=== PATIENT | female | born 1980 | race African-American/Black ===

== ENCOUNTER 2017-01-03 19:24 | Emergency (ER) | payer OTHER ==
[2017-01-03] MEDS ORDERED: levETIRAcetam 500 MG/5 ML INJECTION VIAL IVPB ONE ×2 (19:38→19:39)
[2017-01-03 20:00] VITALS: BP 138/96; PULSE 72; TEMP 98.3; BMI 120.3
[2017-01-03 20:13] LABS: BASOPHIL 0.5 % (0-2.0); EOSINOPHIL 1.5 % (0-4.5); MCHC 34.5 g/dl (32.0-36.0); MEAN CELL VOLUME 95.7 fl (80-96); MEAN PLT VOLUME 8.1 fl (7.5-11.1); NEUTROPHILS 63.1 % (42.8-82.8); PLATELET COUNT 244 K/MM3 (134-434); RDW 13.7 % (11.6-15.6); WHITE BLOOD COUNT 9.1 K/mm3 (4.0-10.0)
[2017-01-03 20:42] LABS: ALBUMIN 3.4 g/dl (3.4-5.0); ANION GAP 8 (8-16); BILIRUBIN,TOTAL 0.3 mg/dL (0.2-1.0); CALCIUM 8.5 mg/dL (8.5-10.1); CO2 30 mmol/L (21-32); CREATININE 0.8 mg/dL (0.55-1.02); GLUCOSE,RANDOM 96 mg/dL (74-106); SGOT/AST 15 U/L (15-37); SGPT/ALT 22 U/L (12-78)
[2017-01-03 20:43] LABS: ALK PHOS 68 U/L (45-117)
[2017-01-03] MEDS ORDERED: POTASSIUM CHLORIDE TABS 20 MEQ TABLET.ER (FP) PO ONE ×3 (21:14→21:33)
--- NOTE | 2017-01-04 02:17 | PDOC ---
History of Present Illness - General History Source: Patient Exam Limitations: No Limitations - History of Present Illness Initial Comments: 01/04/17 02:17 The patient is a 36 year old female with a significant past medical history of seizure disorder (Keppra 500 BID), asthma, diabetes who presents to the ED s/p seizure. Patient was at her doctor's office at [facility] to renew her seizure medication as she was witnessed by security officers to have a seizure. Patient was found to be seizing for 5-10 minutes. As per EMS, patient was found to have BGM was 97 and slightly postictal. No prior history of trauma. LMP - couple weeks ago PSH: Left knee surgery, cholecystectomy <Toshia Joyce - Last Filed: 01/04/17 02:17> <Joanne Peck - Last Filed: 01/05/17 02:16> - General Chief Complaint: Seizure Stated Complaint: SEIZURE Time Seen by Provider: 01/03/17 19:28 Past History <Toshia Joyce - Last Filed: 01/04/17 02:17> - Past Medical History Asthma: Yes Cancer: No Diabetes: Yes (?) GI Disorders: Yes (gallstones; she had laparoscopic surgery to crush them, but she still has h) Seizures: No - Immunization History Immunization Up to Date: No - Psycho/Social/Smoking Cessation Hx Anxiety: No Suicidal Ideation: No Smoking Status: Yes Smoking History: Never smoked Years of Tobacco Use: 16 Have you smoked in the past 12 months: Yes Number of Cigarettes Smoked Daily: 10 'Breaking Loose' booklet given: 05/16/12 Hx Alcohol Use: No Drug/Substance Use Hx: No Substance Use Type: Marijuana Hx Substance Use Treatment: No <Joanne Peck - Last Filed: 01/05/17 02:16> - Past Medical History Allergies/Adverse Reactions: Allergies Allergy/AdvReac Type Severity Reaction Status Date / Time ampicillin [Ampicillin] Allergy Unknown Verified 05/08/16 03:37 Home Medications: Ambulatory Orders Morphine Sulfate 30 mg PO BID PRN 07/24/14 Oxycodone HCl/Acetaminophen [Oxycodone-Acetaminophen 10-325] 1 each PO BID PRN 07/24/14 Hctz 25Mg/Triamterene [Dyazide 25/37.5MG -] 1 cap PO BID 01/03/17 Levetiracetam [Keppra -] 500 mg PO BID 01/03/17 Review of Systems - Review of Systems Comments:: 01/04/17 02:18 CONSTITUTIONAL: Absent: fever, chills, diaphoresis, generalized weakness, malaise, loss of appetite HEENT: Absent: rhinorrhea, nasal congestion, throat pain, throat swelling, difficulty swallowing, mouth swelling, ear pain, eye pain, visual Changes CARDIOVASCULAR: Absent: chest pain, syncope, palpitations, irregular heart rate, lightheadedness , peripheral edema RESPIRATORY: Absent: cough, shortness of breath, dyspnea with exertion, orthopnea, wheezing, stridor, hemoptysis GASTROINTESTINAL: Absent: abdominal pain, abdominal distension, nausea, vomiting, diarrhea, constipation, melena, hematochezia GENITOURINARY: Absent: dysuria, frequency, urgency, hesitancy, hematuria, flank pain, genital pain MUSCULOSKELETAL: Absent: myalgia, arthralgia, joint swelling SKIN: Absent: rash, itching, pallor HEMATOLOGIC/IMMUNOLOGIC: Absent: easy bleeding, easy bruising, lymphadenopathy, frequent infections ENDOCRINE: Absent: unexplained weight gain, unexplained weight loss, heat intolerance, cold intolerance NEUROLOGIC: Absent: headache, focal weakness or paresthesias, dizziness, unsteady gait, seizure, mental status changes, bladder or bowel incontinence PSYCHIATRIC: Absent: anxiety, depression, suicidal or homicidal ideation, hallucinations. <Toshia Joyce - Last Filed: 01/04/17 02:17> *Physical Exam - Vital Signs Last Vital Signs Temp Pulse Resp BP Pulse Ox 98.3 F 72 16 138/96 99 01/03/17 19:25 01/03/17 19:25 01/03/17 19:25 01/03/17 19:25 01/03/17 19:25 - Physical Exam Comments: 01/04/17 02:18 GENERAL: Well developed, well nourished. A&OX3. No acute distress. HEENT: Normocephalic.. PERRLA, EOMI. No conjunctival pallor. Sclera are non-icteric. Moist mucous membranes. Oropharynx is clear. NECK: Supple. Full ROM. No JVD. Carotid pulses 2+ and symmetric, without bruits. No thyromegaly. No lymphadenopathy. CARDIOVASCULAR: Regular rate and rhythm. No murmurs, rubs, or gallops. Distal pulses are 2+ and symmetric. PULMONARY: No evidence of respiratory distress. Lungs clear to auscultation bilaterally. No wheezing, rales or rhonchi. ABDOMINAL: +Morbidly obese. Soft. Non-tender. Non-distended. No rebound or guarding. No organomegaly. Normoactive bowel sounds. MUSCULOSKELETAL Normal range of motion at all joints. No bony deformities or tenderness. No CVA tenderness. EXTREMITIES: No cyanosis. No clubbing. No edema. No calf tenderness. SKIN: +4 cm abrasion on left forehead. Warm and dry. Normal capillary refill. No rashes. No jaundice. NEUROLOGICAL: Alert, awake, appropriate. Cranial nerves 2-12 intact. No deficits to light touch and temperature in face, upper extremities and lower extremities. No motor deficits in the in face, upper extremities and lower extremities. Normoreflexic in the upper and lower extremities. Normal speech. Toes are down-going bilaterally. Gait is normal without ataxia. PSYCHIATRIC: Cooperative. Good eye contact. Appropriate mood and affect. <Toshia Joyce - Last Filed: 01/04/17 02:17> - Vital Signs Last Vital Signs Temp Pulse Resp BP Pulse Ox 98.3 F 72 16 138/96 99 01/03/17 19:25 01/03/17 19:25 01/03/17 19:25 01/03/17 19:25 01/03/17 19:25 <Joanne Peck - Last Filed: 01/05/17 02:16> ED Treatment Course - LABORATORY CBC & Chemistry Diagram: 01/03/17 20:00 01/03/17 20:00 - ADDITIONAL ORDERS Additional order review: Laboratory Results 01/03/17 01/03/17 01/03/17 20:00 20:00 20:00 INR Sodium 140 Potassium 3.1 L D Chloride 102 Carbon Dioxide 30 Anion Gap 8 BUN 10 D Creatinine 0.8 Creat Clearance w eGFR > 60 Random Glucose 96 Calcium 8.5 Total Bilirubin 0.3 D AST 15 ALT 22 Alkaline Phosphatase 68 Total Protein 7.0 Albumin 3.4 Serum , Qual Negative Blood Type B POSITIVE Antibody Screen Negative 01/03/17 20:00 INR 1.00 Sodium Potassium Chloride Carbon Dioxide Anion Gap BUN Creatinine Creat Clearance w eGFR Random Glucose Calcium Total Bilirubin AST ALT Alkaline Phosphatase Total Protein Albumin Serum , Qual Blood Type Antibody Screen 01/03/17 20:00 RBC 3.89 MCV 95.7 MCHC 34.5 RDW 13.7 MPV 8.1 Neutrophils % 63.1 Lymphocytes % 29.3 D Monocytes % 5.6 Eosinophils % 1.5 Basophils % 0.5 - Medications Given in the ED: ED Medications Discontinued Medications Generic Name Dose Route Start Last Admin Trade Name Freq PRN Reason Stop Dose Admin Levetiracetam 1,000 mg 01/03/17 19:38 01/03/17 19:57 Keppra Injection - IVPB 01/03/17 19:39 1,000 mg ONCE ONE Administration Potassium Chloride 40 meq 01/03/17 21:14 01/03/17 21:32 K-Dur - PO 01/03/17 21:15 40 meq ONCE ONE Administration <Toshia Joyce - Last Filed: 01/04/17 02:17> - LABORATORY CBC & Chemistry Diagram: 01/03/17 20:00 01/03/17 20:00 - ADDITIONAL ORDERS Additional order review: Laboratory Results 01/03/17 01/03/17 01/03/17 20:00 20:00 20:00 INR Sodium 140 Potassium 3.1 L D Chloride 102 Carbon Dioxide 30 Anion Gap 8 BUN 10 D Creatinine 0.8 Creat Clearance w eGFR > 60 Random Glucose 96 Calcium 8.5 Total Bilirubin 0.3 D AST 15 ALT 22 Alkaline Phosphatase 68 Total Protein 7.0 Albumin 3.4 Serum , Qual Negative Blood Type B POSITIVE Antibody Screen Negative 01/03/17 20:00 INR 1.00 Sodium Potassium Chloride Carbon Dioxide Anion Gap BUN Creatinine Creat Clearance w eGFR Random Glucose Calcium Total Bilirubin AST ALT Alkaline Phosphatase Total Protein Albumin Serum , Qual Blood Type Antibody Screen 01/03/17 20:00 RBC 3.89 MCV 95.7 MCHC 34.5 RDW 13.7 MPV 8.1 Neutrophils % 63.1 Lymphocytes % 29.3 D Monocytes % 5.6 Eosinophils % 1.5 Basophils % 0.5 - Medications Given in the ED: ED Medications Discontinued Medications Generic Name Dose Route Start Last Admin Trade Name Freq PRN Reason Stop Dose Admin Levetiracetam 1,000 mg 01/03/17 19:38 01/03/17 19:57 Keppra Injection - IVPB 01/03/17 19:39 1,000 mg ONCE ONE Administration Potassium Chloride 40 meq 01/03/17 21:14 01/03/17 21:32 K-Dur - PO 01/03/17 21:15 40 meq ONCE ONE Administration <Joanne Peck - Last Filed: 01/05/17 02:16> Medical Decision Making - Medical Decision Making 01/05/17 02:14 This 36-year-old female was brought in by ambulance for a witnessed grand mal seizure. She sustained a forehead hematoma. Upon arrival she was alert and conversant. She does have a history of seizures and actually had just seen her doctor and was leaving the doctor's office building when she had this seizure She takes Keppra for her seizures and she was given a loading dose of Keppra upon arrival - she had no gross focal neural deficits. She refused to have a CAT scan of the head and left AGAINST MEDICAL ADVICE in the company of her family members <Joanne Peck - Last Filed: 01/05/17 02:16> *DC/Admit/Observation/Transfer - Attestations Scribe Attestion: 01/04/17 02:19 Documentation prepared by MERCEDES Miranda, acting as medical secretary for Joanne Peck MD. <Toshia Joyce - Last Filed: 01/04/17 02:17> <Joanne Peck - Last Filed: 01/05/17 02:16> Diagnosis at time of Disposition: Seizure disorder - Discharge Dispostion Disposition: AGAINST MEDICAL ADVICE Condition at time of disposition: Improved - Referrals Referrals: Abdelrahman Herzog MD [Primary Care Provider] - - Patient Instructions - Post Discharge Activity
== END 2017-01-03 22:15 | disposition left against medical advice (07) ==
LOC: JER 19:24
PROC: 3E033GC Introduction of Other Therapeutic Substance into Peripheral Vein, Percutaneous Approach (ICD-10-PCS; principal; 2017-01-03)
DX: G40.409 Other generalized epilepsy and epileptic syndromes, not intractable, without status epilepticus (principal); S00.83XA Contusion of other part of head, initial encounter; X58.XXXA Exposure to other specified factors, initial encounter; Y93.89 Activity, other specified; Y92.531 Health care provider office as the place of occurrence of the external cause; Y99.8 Other external cause status; E11.9 Type 2 diabetes mellitus without complications; J45.909 Unspecified asthma, uncomplicated
CPT/HCPCS: 36415; 80053; 81003; 84703; 85025; 85610; 86850; 86900; 86901; 96374; 99283-25

== ENCOUNTER 2017-04-17 09:54 | Emergency (ER) | payer OTHER ==
[2017-04-17 10:05] VITALS: TEMP 98.2; BMI 43.5
[2017-04-17] MEDS ORDERED: KETOROLAC TROMETHAMINE 30 MG/1 ML VIAL IVPUSH ONE (10:59)
--- NOTE | 2017-04-17 10:59 | PDOC ---
History of Present Illness - General Chief Complaint: Tongue Swelling Stated Complaint: SWOLLEN TONGUE Time Seen by Provider: 04/17/17 10:19 History Source: Patient Exam Limitations: No Limitations - History of Present Illness Initial Comments: This is a 36 yo female with h/o seizures (on Keppra) who p/w left sided jaw and neck swelling after having bit her tongue during a seizure two days ago. She notes having tongue pain since the incident, but yesterday it was not swollen or draining any blood. This morning when she awoke, she noticed bloody drainage on her pillow and swelling to the left jaw and neck. She describes pain in the tongue as well, which is throbbing and 10/10 and worsening this morning. She notes mild difficulty talking due to the pain, but has not had trouble with swallowing or drooling. She notes a mild right-sided headache, but denies recent cough, runny nose, sore throat, fever, chills, nausea, dizziness, vision changes, ear pain, ear drainage, or other symptoms. Past History - Past Medical History Allergies/Adverse Reactions: Allergies Allergy/AdvReac Type Severity Reaction Status Date / Time ampicillin [Ampicillin] Allergy Unknown Verified 04/17/17 11:52 Home Medications: Ambulatory Orders Morphine Sulfate 30 mg PO BID PRN 07/24/14 Levetiracetam [Keppra -] 500 mg PO BID 01/03/17 Chlorhexidine Gluconate [Peridex -] 5 ml PO BID #1 bottle 04/17/17 Hydrochlorothiazide 25 mg PO BID 04/17/17 Naproxen [Naprosyn -] 375 mg PO Q12H #30 tablet 04/17/17 Oxycodone HCl [Oxycodone HCl ER] 20 mg PO TID PRN 04/17/17 Asthma: Yes Cancer: No Diabetes: Yes (?) GI Disorders: Yes (gallstones; she had laparoscopic surgery to crush them, but she still has h) HTN: Yes Seizures: No - Immunization History Immunization Up to Date: No - Psycho/Social/Smoking Cessation Hx Anxiety: No Suicidal Ideation: No Smoking Status: Yes Smoking History: Current every day smoker Years of Tobacco Use: 16 Have you smoked in the past 12 months: Yes Number of Cigarettes Smoked Daily: 10 Information on smoking cessation initiated: No 'Breaking Loose' booklet given: 05/16/12 Hx Alcohol Use: No Drug/Substance Use Hx: No Substance Use Type: Marijuana Hx Substance Use Treatment: No Review of Systems - Review of Systems Constitutional: No: Chills, Fever, Unexplained wgt Loss HEENTM: Yes: Other (left tongue swelling and pain, left jaw swelling and pain, left neck swelling and pain). No: Blurred Vision, Recent change in vision, Ear Pain, Ear Discharge, Nose Congestion, Throat Pain, Dental Problems, Difficulty Swallowing Respiratory: No: Cough, Shortness of Breath Cardiac (ROS): No: Chest Pain, Palpitations ABD/GI: No: Constipated, Diarrhea, Nausea, Vomiting : No: Burning, Dysuria Musculoskeletal: No: Back Pain, Neck Pain Integumentary: No: Bruising, Rash Neurological: No: Headache, Numbness, Tingling, Weakness, Dizziness Endocrine: No: Unexplained Weight Gain, Unexplained Weight Loss *Physical Exam - Vital Signs Last Vital Signs Temp Pulse Resp BP Pulse Ox 98.2 F 72 17 114/93 98 04/17/17 10:04/17/17 10:04/17/17 10:04/17/17 10:04/17/17 10:01 - Physical Exam General Appearance: Yes: Nourished, Appropriately Dressed, Mild Distress, Obese , Other (tearful but conversive and answering appropriately, speaking quietly and opening her mouth minimally to speak) HEENT: positive: EOMI, Normal Voice, Hearing Grossly Normal, Other (Left lateral tongue mild swelling and lateral tongue ulceration consistent with self- inflicted bite wound, hemostatic, no drainage, no necrotic tissue, no swelling to floor of mouth, no airway obstruction, no tonsillar swelling or exudates, no posterior pharyngeal or tonsillar erythema, no stridor, no trismus, no drooling , tolerating secretions, no tooth tenderness to percussion, no obvious caries or fractures, no gingival swelling). negative: Scleral Icterus (R), Scleral Icterus (L), Nasal Congestion Neck: positive: Trachea midline, Normal Thyroid, Supple, Lymphadenopathy (L). negative: Tender, Rigid, Decreased range of motion, Lymphadenopathy (R), Rigidity, Tender midline Respiratory/Chest: positive: Lungs Clear, Normal Breath Sounds. negative: Respiratory Distress, Crackles, Rhonchi, Stridor, Wheezing Cardiovascular: positive: Regular Rhythm, Regular Rate. negative: Murmur Gastrointestinal/Abdominal: positive: Normal Bowel Sounds, Soft. negative: Tender, Organomegaly, Pulsatile Mass, Guarding Musculoskeletal: positive: Normal Inspection. negative: Decreased Range of Motion, Vertebral Tenderness Extremity: positive: Normal Capillary Refill, Normal Inspection, Normal Range of Motion. negative: Tender, Cyanosis Integumentary: positive: Normal Color, Dry, Warm. negative: Erythema, Rash, Bruising Neurologic: positive: front desk lead II-XII NML intact, Fully Oriented, Alert, Normal Mood/ Affect, Normal Response, Motor Strength 01/14 ED Treatment Course - LABORATORY CBC & Chemistry Diagram: 04/17/17 11:37 04/17/17 11:37 Medical Decision Making - Medical Decision Making 36 yo female with h/o seizures p/w left tongue, jaw, and neck pain/swelling s/p sz with tongue bite. Denies difficulty breathing or throat closing. On exam VSS and left tongue is edematous with lateral superficial trauma likely from tongue bite. No posterior pharyngeal erythema, e/o infection or Anthony's angina. Mild jaw and neck swelling likely 2/2 lymphadenopathy. DDX also includes dental infection, Anthony's angina, parotitis, sialolithiasis. Ordered are CBC, CMP, serum preg, and CT neck W contrast. The patient's CBC returns with WBC 10.1, CMP wnl, serum preg neg. The results are discussed with the patient who is eager to go home. She states that her jaw/neck pain and swelling completely resolved with toradol. She defers the neck CT W contrast. Risks of neck and jaw swelling are discussed with her. She continues to defer CT and requests discharge home. She states that she has an appointment with her PCP tomorrow. She is encouraged to address this with her PCP tomorrow at her appointment. She is prescribed chlorhexidine mouth wash and naproxen, sent to pharmacy. Risks and return precautions are thoroughly discussed with the patient. She is reexamined just prior to discharge, no jaw or neck swelling, no airway obstruction. Tongue with continued mild swelling improved over interval, non-obstructing, VSS. She is discharged home. *DC/Admit/Observation/Transfer Diagnosis at time of Disposition: Mild tongue swelling, Tongue biting - Discharge Dispostion Disposition: HOME Condition at time of disposition: Stable Admit: No - Prescriptions Prescriptions: Naproxen [Naprosyn -] 375 mg PO Q12H #30 tablet Chlorhexidine Gluconate [Peridex -] 5 ml PO BID #1 bottle - Referrals Referrals: Abdelrahman Herzog MD [Primary Care Provider] - - Patient Instructions Printed Discharge Instructions: DI for a Human Bite Additional Instructions: You were seen today for tongue swelling and pain after biting it during a seizure two days ago. We gave you toradol for your pain and swelling, and did some basic laboratory work to see if there was an infection. Your white blood cell count was 10.1, which is slightly elevated. Because you were having swelling around the left jaw and neck, we recommended a neck CT scan to make sure that there was no infection or other serious illness/injury. You deferred on this and preferred discharge home with prescriptions sent for Naproxen Sodium and Chlorhexidine mouthwash. Please follow up with your primary doctor tomorrow as scheduled. Please return to the emergency room with any worsening swelling of the tongue, throat, neck, jaw, or other area. Please return for fever, difficulty breathing, lightheadedness, headache, or feeling like you are going to pass out. Return for any new or worsening symptoms. Use the mouth wash as directed, and use the naproxen as directed as needed for pain. - Attestations Physician Attestion: I, Dr. Leigha Rizo, attest that this document has been prepared under my direction and personally reviewed by me in its entirety. I further attest, that it accurately reflects all work, treatment, procedures and medical decision -making performed by me.
[2017-04-17] MEDS ORDERED: DEXAMETHASONE SOD PHOSPHATE 10 MG/1 ML VIAL IVPUSH ONE (11:04)
--- NOTE | 2017-04-17 11:22 | PDOC ---
Attending Attestation - Resident Resident Name: Leigha Rizo - ED Attending Attestation I have performed the following: I have examined & evaluated the patient, The case was reviewed & discussed with the resident, I agree w/resident's findings & plan, Exceptions are as noted - HPI HPI: 04/17/17 11:16 "The patient is a 36 year old female, with a significant past medical history of seizures (on Keppra), DM, and asthma, who presents to the emergency department with tongue swelling/pain since this morning. The patient reports about 2 days prior to her tongue pain, she bit her tongue during one of her seizures. She reports this morning waking up with both tongue swelling and pain , noting blood on her pillow. She also complains of pain going down the left side of her neck. Denies any difficulty swallowing or breathing. Denies voice change, denies lip swelling. She denies recent fevers, chills, headache or dizziness. She denies recent nausea, vomit, diarrhea or constipation. She denies recent dysuria, frequency, urgency or hematuria. Pt states that she has a seizure every 3-4 months. No increase in sz frequency. No changes in her medications and reports compliance with her meds. No recent illness, no known precipitating factors for her seizure. Allergies: NKA Past surgical history: None reported. Social history: Current everyday smoker (10 cigs per day). Social EtOH use and denies recreational drug use. Primary Care Physician: " 04/17/17 11:22 - Physicial Exam PE: 04/17/17 11:19 "GENERAL: Awake, alert, and fully oriented, in no acute distress HEAD: No signs of trauma EYES: PERRLA, EOMI, sclera anicteric, conjunctiva clear ENT: Tongue with multiple <1cm ulcers to L side with no active bleeding. Mild edema to lateral aspect of tongue. No uvula swelling. No lip swelling. No masses underneath tongue, no mastoid TTP NECK: Normal ROM, supple, mild lymphadenopathy to L side of neck, no fluctuance LUNGS: Breath sounds equal, clear to auscultation bilaterally. No wheezes, and no crackles, no stridor HEART: Regular rate and rhythm, normal S1 and S2, no murmurs, rubs or gallops ABDOMEN: Soft, nontender, normoactive bowel sounds. No guarding, no rebound. No masses SKIN: Warm, Dry, normal turgor, no rashes or lesions noted. " 04/17/17 11:23 - Medical Decision Making 04/17/17 11:22 36 F with pain and swelling to L side of tongue, as well as pain in her neck after biting her tongue during seizure. Symptoms likely 2/2 tongue trauma, although lymphadenopathy in pt's neck and neck pain raise suspicion for underlying infectious process. - Labs - CT neck w/ IV contrast - IV toradol + decadron 04/17/17 13:[address] at this time, as she states she feels much better after medications. Discussed with patient reason for obtaining CT. Pt expresses understanding that without CT, we cannot definitively rule out infection or underlying collection, and pt understands that if untreated, this could lead to severe illness or . Pt has plan to f/u with her PMD tomorrow. Pt with improved exam at this time, with minimal tenderness in her neck. Continues to have full range of motion of neck and no fluctuance. Very unlikely to have underlying abscess requiring drainage.
[2017-04-17] MEDS ORDERED: DEXAMETHASONE SOD PHOSPHATE 10 MG/1 ML VIAL ONE (11:40)
[2017-04-17] MEDS ORDERED: KETOROLAC TROMETHAMINE 30 MG/1 ML VIAL ONE (11:41)
[2017-04-17 12:20] LABS: BASOPHIL 0.4 % (0-2.0); EOSINOPHIL 1.5 % (0-4.5); MEAN CELL VOLUME 97.1 fl (80-96); MEAN PLT VOLUME 8.3 fl (7.5-11.1); PLATELET COUNT 241 K/MM3 (134-434); RDW 13.9 % (11.6-15.6); WHITE BLOOD COUNT 10.1 K/mm3 (4.0-10.0)
[2017-04-17 12:43] LABS: ALBUMIN 3.4 g/dl (3.4-5.0); ANION GAP 4 (8-16); CALCIUM 8.6 mg/dL (8.5-10.1); CO2 32 mmol/L (21-32); CREATININE 0.7 mg/dL (0.55-1.02); GLUCOSE,RANDOM 82 mg/dL (74-106); SGPT/ALT 24 U/L (12-78)
[2017-04-17 12:47] LABS: ALK PHOS 58 U/L (45-117); AMYLASE 67 U/L (25-115); BILIRUBIN,TOTAL 0.3 mg/dL (0.2-1.0); TOT PROT 6.7 g/dl (6.4-8.2)
[2017-04-17 12:48] LABS: SGOT/AST 20 U/L (15-37)
[2017-04-17 13:29] VITALS: BP 122/65; PULSE 68
== END 2017-04-17 13:44 | disposition home or self-care (01) ==
LOC: JER 09:54
PROC: 3E033GC Introduction of Other Therapeutic Substance into Peripheral Vein, Percutaneous Approach (ICD-10-PCS; principal; 2017-04-17)
PROC: 3E0333Z Introduction of Anti-inflammatory into Peripheral Vein, Percutaneous Approach (ICD-10-PCS; 2017-04-17)
DX: K13.1 Cheek and lip biting (principal); R22.0 Localized swelling, mass and lump, head; F17.210 Nicotine dependence, cigarettes, uncomplicated; J45.909 Unspecified asthma, uncomplicated; I10 Essential (primary) hypertension
CPT/HCPCS: 36415; 80053; 82150; 84703; 85025; 96374; 96375; 99282-25

== ENCOUNTER 2018-06-06 00:23 | Emergency (ER) | payer OTHER ==
[2018-06-06 00:49] VITALS: BP 143/89; PULSE 87; TEMP 97.9; BMI 45.1
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
[2018-06-06] MEDS ORDERED: TETANUS AND DIPHTHERIA TOXOID 0.5 ML DISP.SYRIN IM ONE (01:51)
== END 2018-06-06 02:30 | disposition home or self-care (01) ==
LOC: JER 00:23
PROC: 0CQ00ZZ Repair Upper Lip, Open Approach (ICD-10-PCS; principal; 2018-06-06)
PROC: 3E0234Z Introduction of Serum, Toxoid and Vaccine into Muscle, Percutaneous Approach (ICD-10-PCS; 2018-06-06)
DX: S01.511A Laceration without foreign body of lip, initial encounter (principal); S00.81XA Abrasion of other part of head, initial encounter; Y00.XXXA Assault by blunt object, initial encounter; Y93.89 Activity, other specified; Y92.414 Local residential or business street as the place of occurrence of the external cause; Y99.8 Other external cause status; Y07.9 Unspecified perpetrator of maltreatment and neglect
CPT/HCPCS: 12011; 90471; 99281-25

== ENCOUNTER 2018-06-13 08:42 | Emergency (ER) | payer OTHER ==
[2018-06-13 08:54] VITALS: BP 130/87; PULSE 79; TEMP 98.3; BMI 46.6
--- NOTE | 2018-06-13 09:27 | PDOC ---
Suture Removal/Wound Check HPI - History of Present Illness Chief Complaint: Suture/Staple Removal(Here) Stated Complaint: Suture/Staple Removal(Here) Time Seen by Provider: 06/13/18 09:15 History Source: Yes: Patient Exam Limitations: Yes: No Limitations [facility] Previous ED Treatment Type of procedure performed on last visit: Yes: Laceration Repair Antibiotics Prescribed: No Past History - Past Medical History Allergies/Adverse Reactions: Allergies Allergy/AdvReac Type Severity Reaction Status Date / Time ampicillin [Ampicillin] Allergy Unknown Verified 06/13/18 08:48 Home Medications: Ambulatory Orders Morphine Sulfate 30 mg PO BID PRN 07/24/14 levETIRAcetam [Keppra -] 500 mg PO BID 01/03/17 Chlorhexidine Gluconate [Peridex -] 5 ml PO BID #1 bottle 04/17/17 Hydrochlorothiazide 25 mg PO BID 04/17/17 Naproxen [Naprosyn -] 375 mg PO Q12H #30 tablet 04/17/17 Oxycodone HCl [Oxycodone HCl ER] 20 mg PO TID PRN 04/17/17 Asthma: Yes Cancer: No COPD: No Diabetes: Yes (?) GI Disorders: Yes (gallstones; she had laparoscopic surgery to crush them, but she still has h) HTN: Yes Seizures: No - Immunization History Immunization Up to Date: No - Suicide/Smoking/Psychosocial Hx Smoking Status: Yes Smoking History: Never smoked Years of Tobacco Use: 16 Have you smoked in the past 12 months: No Number of Cigarettes Smoked Daily: 10 Information on smoking cessation initiated: No 'Breaking Loose' booklet given: 05/16/12 Hx Alcohol Use: No Drug/Substance Use Hx: No Substance Use Type: Marijuana Hx Substance Use Treatment: No Patient Lives Alone: No Suture Removal/Wound Check PE - Physical Exam Laceration/Wound Check Symptoms: reports: None Current Severity Level: None Maximum Severity Level: None Pain Localization: None Location of Laceration/Wound: left: Lip Pain Radiation: None *Review of Systems - Review of Systems Able to Perform ROS?: Yes Constitutional: No: Symptoms Reported Integumentary: No: Symptoms Reported Neurological: No: Symptoms reported *Physical Exam - Vital Signs Last Vital Signs Temp Pulse Resp BP Pulse Ox 98.3 F 79 16 130/87 97 06/13/18 08:49 06/13/18 08:49 06/13/18 08:49 06/13/18 08:49 06/13/18 08:49 - Physical Exam General Appearance: Yes: Nourished, Appropriately Dressed. No: Apparent Distress Integumentary: positive: Normal Color, Warm, Moist Medical Decision Making - Medical Decision Making 06/13/18 09:26 removed 3 sutures from upper left lip region without difficulty. Bacitracin applied *DC/Admit/Observation/Transfer Diagnosis at time of Disposition: Encounter for removal of sutures - Discharge Dispostion Disposition: HOME - Referrals Referrals: Abdelrahman Herzog MD [Primary Care Provider] - - Patient Instructions Printed Discharge Instructions: DI for Suture Removal Additional Instructions: Apply bacitracin twice a day x 2 days - Post Discharge Activity
== END 2018-06-13 09:30 | disposition home or self-care (01) ==
LOC: JERFT 08:42 → JER 08:42 → JERFT 09:30
DX: Z48.817 Encounter for surgical aftercare following surgery on the skin and subcutaneous tissue (principal); Z48.02 Encounter for removal of sutures
CPT/HCPCS: 99281-25

== ENCOUNTER 2020-07-02 11:50 | Emergency (ER) | payer OTHER ==
[2020-07-02 12:21] VITALS: TEMP 97.1; BMI 41.6
--- NOTE | 2020-07-02 12:59 | PDOC ---
History of Present Illness - General Chief Complaint: Syncope/Near Syncope Stated Complaint: LT KNEE PAIN Time Seen by Provider: 07/02/20 12:59 - History of Present Illness Initial Comments: 07/02/20 13:11 40 F with hx of seizure ( on Keppra) ,chronic back pain, artertisit of the legs ( on oxycoidine 30 and morphine 30 BID), morbidly obese presented here for left medial knee pain. Yesterday, Patient suffered a witnessed syncope lasted under 1 min, no head hitting, fell down. Didn't endorse post ictal after syncope. After the syncope, she had left knee pains and couldn't extend the leg. On baseline, patient walked with a cane. Endorsed normal sensation. Denies chest pain, abdominal pain, headache, nausea, vomiting, saddle anesthesia. PMHX: as in HPI PSHX: right knee surgery Meds: oxycodein, morphine, waterpills. Allergies: ampicillin Tob: half pack daily. Etoh: daily Rec drugs: mairjuana. PCP: alma rosa PARDO GENERAL/CONSTITUTIONAL: No fever or chills. No weakness. HEAD, EYES, EARS, NOSE AND THROAT: No change in vision. No ear pain or discharge. No sore throat. CARDIOVASCULAR: No chest pain or shortness of breath RESPIRATORY: No cough, wheezing, or hemoptysis. GASTROINTESTINAL: No nausea, vomiting, diarrhea or constipation. GENITOURINARY: No dysuria, frequency, or change in urination. MUSCULOSKELETAL: + left joint or muscle swelling or pain. No neck pain ,+back pain. SKIN: No rash NEUROLOGIC: No headache, vertigo, loss of consciousness, or change in strength/sensation. ENDOCRINE: No increased thirst. No abnormal weight change HEMATOLOGIC/LYMPHATIC: No anemia, easy bleeding, or history of blood clots. ALLERGIC/IMMUNOLOGIC: No hives or skin allergy. PE GENERAL: Awake, alert, and fully oriented, in no acute distress, morbidly obese. HEAD: No signs of trauma, normocephalic, atraumatic EYES: PERRLA, EOMI, sclera anicteric, conjunctiva clear ENT: Auricles normal inspection, hearing grossly normal, nares patent, oropharynx clear without exudates. Moist mucosa NECK: Normal ROM, supple, no lymphadenopathy, JVD, or masses LUNGS: No distress, speaks full sentences, clear to auscultation bilaterally HEART: Regular rate and rhythm, normal S1 and S2, no murmurs, rubs or gallops, peripheral pulses normal and equal bilaterally. ABDOMEN: Soft, nontender, normoactive bowel sounds. No guarding, no rebound. No masses EXTREMITIES : Normal inspection, limited range of motion, no pitting edema. left medial knee tenderness. No erythema, warthm. +left knee effusion. Chronic back tenderness. NEUROLOGICAL: Cranial nerves II through XII grossly intact. Normal speech, no focal sensorimotor deficits SKIN: Warm, Dry, normal turgor, no rashes or lesions noted 07/02/20 14:03 07/02/20 15:02 Past History - Medical History Allergies/Adverse Reactions: Allergies Allergy/AdvReac Type Severity Reaction Status Date / Time ampicillin [Ampicillin] Allergy Unknown Verified 07/02/20 12:19 Home Medications: Ambulatory Orders Morphine Sulfate 30 mg PO BID PRN 07/24/14 levETIRAcetam [Keppra -] 500 mg PO BID 01/03/17 Hydrochlorothiazide 25 mg PO BID 04/17/17 Naproxen [Naprosyn -] 375 mg PO Q12H #30 tablet 04/17/17 Oxycodone HCl [Oxycodone HCl ER] 20 mg PO TID PRN 04/17/17 Tizanidine HCl 6 mg PO ASDIR 07/02/20 Asthma: Yes Cancer: No COPD: No Diabetes: Yes (?) GI Disorders: Yes (gallstones; she had laparoscopic surgery to crush them, but she still has h) HTN: Yes Seizures: No - Reproductive History Is Patient Now?: No - Immunization History Immunization Up to Date: No - Psycho-Social/Smoking History Smoking Status: Yes Smoking History: Unknown if ever smoked Years of Tobacco Use: 16 Have you smoked in the past 12 months: No Number of Cigarettes Smoked Daily: 10 'Breaking Loose' booklet given: 05/16/12 - Substance Abuse Hx (Audit-C & DAST Scrn) How often the patient has a drink containing alcohol: Never Score: In Men: 4 or > Positive; In Women: 3 or > Positive: 0 Screen Result (Pos requires Nsg. Audit-10AR): Negative In the last yr the pt used illegal drug/Rx for NonMed reason: No Score: Yes response is considered Positive: 0 Screen Result (Positive result requires Nsg. DAST-10): Negative *Physical Exam - Vital Signs Last Vital Signs Temp Pulse Resp BP Pulse Ox 97.1 F L 77 18 128/85 98 07/02/20 12:00 07/02/20 12:00 07/02/20 12:00 07/02/20 12:00 07/02/20 12:00 Medical Decision Making - Medical Decision Making 07/02/20 13:21 40 F with hx of seizure ( on Keppra) ,chronic back pain, artertisit of the legs ( on oxycoidine and morphine), morbidly obese presented here for left medial knee pain most likely ligament injury. Xray showed normal result, negative for fx. Most likely not septic joint ( patient can bend knee, no warth, erythma). Patient agreed to have pain control (oxycodien and morphine), place on knee immbolizer , with crutches and follow up with her orthopedic surgeon tomorrow for MRI of the knee. EKG: Patient refused EKG 07/02/20 15:05 07/02/20 15:14 07/02/20 15:24 Discharge - Discharge Information Problems reviewed: Yes Clinical Impression/Diagnosis: Left knee pain Qualifiers: Chronicity: acute Qualified Code(s): M25.562 - Pain in left knee Condition: Fair Disposition: HOME - Follow up/Referral Referrals: Abdelrahman Herzog MD [Primary Care Provider] - - Patient Discharge Instructions Patient Printed Discharge Instructions: DI for Knee Pain Additional Instructions: You were seen in the ED for complaints of left inner knee pain. In the ED you were evaluated with imaging . Your results were negative for fracture. There does not appear to be an acute need for immediate hospitalization. You are advised to follow up with orthopedic surgeon within 1 week for an urgent MRI for evaluation of the knee ligaments. You were given a prescription for pain control. Return to the ED immediately if you experience worsening pain or new symptoms . - Post Discharge Activity Work/Back to School Note: Back to Work
[2020-07-02] MEDS ORDERED: KETOROLAC TROMETHAMINE 60 MG/2 ML VIAL IM ONE (13:59)
[2020-07-02] MEDS ORDERED: KETOROLAC TROMETHAMINE 30 MG/1 ML VIAL ONE (14:14)
--- NOTE | 2020-07-02 14:19 | PDOC ---
Documentation entered by Dwain Ricks SCRIBE, acting as scribe for Brian Ross MD. Brian Ross MD: This documentation has been prepared by the Millicent amaro Xhesika, SCRIBE, under my direction and personally reviewed by me in its entirety. I confirm that the documentation accurately reflects all work, treatment, procedures, and medical decision making performed by me. Attending Attestation - Resident Resident Name: Miguel Pierre - ED Attending Attestation I have performed the following: I have examined & evaluated the patient, The case was reviewed & discussed with the resident, I agree w/resident's findings & plan, Exceptions are as noted - HPI HPI: 07/02/20 13:12 The patient is a 40 year old female, with a significant past medical history of seizures (on Keppra), DM, chronic back pain, arthritis of the legs ( on oxycoidine and morphine)and asthma, who presents to the emergency department with L knee pain s/p fall yesterday. Pt was down on the ground for 1 minute. Pt denies hitting her head. Pt denies LOC. Pt ambulates with a cane. Allergies: NKDA Primary Care Physician: - Physicial Exam PE: 07/02/20 14:15 Pt is awake, alert, obese, in mild distress nc, atr cta rrr abd-sft, nt, nd pelvis:stable L . KNee: no obvious deform; + peripatelar soft tissue swelling; + point ttp along the medial aspect of knee joint; extensor mechanism is intact; sable with v/v; N/V intact b/l. 07/02/20 15:18 - Medical Decision Making 07/02/20 14:18 Patient is a 40-year-old obese female with history of chronic back and joint pain, on oxycodone 30 mg twice daily who presents for atraumatic left knee pain. No obvious deformity or soft tissue swelling is identified. Patient is unable to flex/extend the joint due to pain. I do not suspect septic joint. Will administer ice and Toradol. Will obtain knee x-ray. Will reassess.. 07/02/20 15:22 X-ray reveals no evidence of fracture dislocation. Patient able to flex/extend the knee joint without assistance. I suspect medial collateral ligament strain. Patient refused EKG. Will place in knee immobilizer. Will consider additional Percocet with NSAIDs midday considering patient's current narcotic regimen. Will discharge with non-weightbearing with crutches. adviced the pt of the plan, she expressed understanding. advised of the risk of od when combined with other narcotics. 07/02/20 15:28 Discharge - Discharge Information Problems reviewed: Yes Clinical Impression/Diagnosis: Left knee pain Qualifiers: Chronicity: acute Qualified Code(s): M25.562 - Pain in left knee Condition: Stable Disposition: HOME - Additional Discharge Information Prescriptions: Oxycodone HCl/Acetaminophen [Percocet 5-325 mg Tablet] 1 tab PO Q6H #6 tablet MDD 2 - Follow up/Referral Referrals: Abdelrahman Herzog MD [Primary Care Provider] - - Patient Discharge Instructions Patient Printed Discharge Instructions: DI for Knee Pain Additional Instructions: You were seen in the ED for complaints of left inner knee pain. In the ED you were evaluated with imaging . Your results were negative for fracture. There does not appear to be an acute need for immediate hospitalization. You are advised to follow up with orthopedic surgeon within 1 week for an urgent MRI for evaluation of the knee ligaments. You were given a prescription for pain control. Return to the ED immediately if you experience worsening pain or new symptoms . - Post Discharge Activity Work/Back to School Note: Back to Work
[2020-07-02 15:40] VITALS: BP 116/87; PULSE 81
== END 2020-07-02 15:40 | disposition home or self-care (01) ==
LOC: JER 11:50
PROC: 3E0233Z Introduction of Anti-inflammatory into Muscle, Percutaneous Approach (ICD-10-PCS; principal; 2020-07-02)
DX: M25.562 Pain in left knee (principal)
CPT/HCPCS: 73562-TC-LT-FY; 99284-25

== ENCOUNTER 2022-01-04 19:05 | Emergency (ER) | payer OTHER ==
[2022-01-04 19:31] VITALS: BP 124/85; PULSE 63; TEMP 97.8; BMI 39.9
== END 2022-01-04 22:35 | disposition home or self-care (01) ==
LOC: JERFT 19:05 → JER 19:05 → JERFT 22:35
DX: S09.90XA Unspecified injury of head, initial encounter (principal); V49.40XA Driver injured in collision with unspecified motor vehicles in traffic accident, initial encounter
CPT/HCPCS: 70450-TC; 72125-TC; 99284-25

== ENCOUNTER 2024-03-08 21:23 | Inpatient (IN) | payer OTHER ==
[2024-03-08] MEDS ORDERED: ONDANSETRON 4 MG/2 ML VIAL ONE (23:49)
[2024-03-08] MEDS ORDERED: ACETAMINOPHEN INJECTION 100 ML IVPB ONE (23:49)
[2024-03-08] MEDS ORDERED: FAMOTIDINE 20 MG/50 ML IVPB 20 MG/50 ML MG IVPB ONE (23:49)
[2024-03-09] MEDS: ACETAMINOPHEN 1000 MG/100 ML BAG IVPB ONE (00:06)
[2024-03-09] MEDS: FAMOTIDINE 20 MG/50 ML IVPB 20 MG/50 ML MG IVPB ONE (00:06)
[2024-03-09] MEDS: ONDANSETRON 4 MG/2 ML VIAL IVPUSH ONE ×2 (00:06→05:52)
[2024-03-09] MEDS: SODIUM CHLORIDE 1,000 ML IV STA (00:06)
[2024-03-09 00:25] LABS: HEMATOCRIT 36.7 % (32.4-45.2); HEMOGLOBIN 12.6 GM/dL (10.7-15.3); MCH 32.8 pg (25.7-33.7); MCHC 34.2 g/dl (32.0-36.0); MEAN CELL VOLUME 95.7 fl (80-96); MEAN PLT VOLUME 9.2 fl (7.5-11.1); PLATELET COUNT 242 10^3/uL (134-434); RBC 3.84 M/mm3 (3.60-5.2); RDW 14.5 % (11.6-15.6); WHITE BLOOD COUNT 13.4 K/mm3 (4.0-10.0)
[2024-03-09 01:02] LABS: POTASSIUM 5.8 mmol/L (3.5-5.1)
[2024-03-09 01:04] LABS: CALCIUM 8.4 mg/dL (8.5-10.1)
[2024-03-09 01:05] LABS: BLOOD UREA NITROGEN 6.3 mg/dL (7-18)
[2024-03-09 01:08] LABS: CREATININE 0.9 mg/dL (0.55-1.3)
[2024-03-09 01:09] LABS: BILIRUBIN,TOTAL 1.3 mg/dL (0.2-1)
[2024-03-09 01:10] LABS: TOT PROT 7.3 g/dl (6.4-8.2)
[2024-03-09 02:59] LABS: URINE APPEARANCE CLEAR; URINE BILIRUBIN NEGATIVE (NEGATIVE); URINE COLOR ORANGE; URINE GLUCOSE (UA) NEGATIVE (NEGATIVE); URINE KETONE 15 mg/dl (NEGATIVE)
[2024-03-09 03:00] LABS: EPI CELLS 38.1 /uL (0-25.1); HYALINE CASTS 2.48 /uL (0-3.1); URINE BACTERIA 11888 /uL (0-1359); URINE LEUK ESTERASE NEGATIVE (NEGATIVE); URINE NITRITE POSITIVE (NEGATIVE); URINE PROTEIN TRACE (NEGATIVE); URINE RBC 5.4 /uL (0-23.9); URINE WBC 17.9 /uL (0-25.8)
[2024-03-09 03:13] LABS: ANISOCYTOSIS 1+; MACROCYTOSIS 0; ROULEAU 1+
[2024-03-09] MEDS ORDERED: CEFTRIAXONE 1 GM/50 ML BAG ONE (04:13)
[2024-03-09] MEDS: CEFTRIAXONE 1 GM in DEXTROSE 5%-WATER - 100 ML IVPB ONE (04:17)
[2024-03-09] MEDS ORDERED: ONDANSETRON 4 MG/2 ML VIAL ONE (05:13)
[2024-03-09] MEDS ORDERED: MORPHINE SULFATE 2 MG/ML SYRINGE ONE ×2 (08:31→08:33)
[2024-03-09] MEDS ORDERED: ACETAMINOPHEN 325 MG TABLET (FP) ONE (08:31)
[2024-03-09] MEDS: ACETAMINOPHEN 500 MG TABLET (FP) PO ONE (08:38)
[2024-03-09] MEDS: morphine CARPU-JECT 2 MG/1 ML DISP.SYRIN IVPUSH ONE (08:38)
[2024-03-09 11:35] VITALS: BMI 41.6
[2024-03-09] MEDS: PANTOPRAZOLE SODIUM 40 MG VIAL IVPUSH SCH (14:16)
[2024-03-09] MEDS: ENOXAPARIN NA (PORCINE) 40 MG/0.4 ML DISP.SYRIN SQ SCH (14:21)
[2024-03-09 16:17] LABS: OPIATES, URI NEGATIVE (NEGATIVE); URINE AMPHETAMINES NEGATIVE (NEGATIVE)
[2024-03-09 16:19] LABS: COCAINE, UR NEGATIVE (NEGATIVE); METHADONE, UR NEGATIVE (NEGATIVE); PHENCYCLIDINE,URINE NEGATIVE (NEGATIVE); URINE BARBITURATES NEGATIVE (NEGATIVE); URINE BENZODIAZEPINES NEGATIVE (NEGATIVE)
[2024-03-09] MEDS: SODIUM CHLORIDE 1,000 ML IV SCH (16:25)
[2024-03-09] MEDS: levETIRAcetam 500 MG TABLET (FP) PO SCH (16:25)
[2024-03-09] MEDS: ACETAMINOPHEN 1000 MG/100 ML BAG IVPB PRN (19:20)
[2024-03-10] MEDS: CEFTRIAXONE 1 GM in DEXTROSE 5%-WATER - 50 ML IVPB SCH (09:32)
[2024-03-10 10:12] LABS: BASO % 0.5 % (0-2.0); EOS % 1.5 % (0-4.5); HEMATOCRIT 31.1 % (32.4-45.2); HEMOGLOBIN 10.6 GM/dL (10.7-15.3); LYMPH % 11.6 % (8-40); MCH 33.3 pg (25.7-33.7); MCHC 34.2 g/dl (32.0-36.0); MEAN CELL VOLUME 97.3 fl (80-96); NEUT % 77.4 % (42.8-82.8); PLATELET COUNT 160 10^3/uL (134-434); RDW 13.8 % (11.6-15.6); WHITE BLOOD COUNT 10.1 K/mm3 (4.0-10.0)
[2024-03-10 10:37] LABS: CHLORIDE 108 mmol/L (98-107); SODIUM 139 mmol/L (136-145)
[2024-03-10 10:43] LABS: CO2 23 mmol/L (21-32); GLUCOSE,RANDOM 61 mg/dL (74-106); MAGNESIUM 1.4 mg/dL (1.8-2.4)
[2024-03-10 10:44] VITALS: RESP 18
[2024-03-10 10:45] LABS: BLOOD UREA NITROGEN 5.2 mg/dL (7-18)
[2024-03-10 10:46] LABS: SGPT/ALT 12 U/L (13-61)
[2024-03-10 10:48] LABS: BILIRUBIN,TOTAL 0.7 mg/dL (0.2-1); CREATININE 0.6 mg/dL (0.55-1.3); PHOSPHOROUS 2.6 mg/dL (2.5-4.9); SGOT/AST 6 U/L (15-37)
[2024-03-10 10:49] LABS: ALK PHOS 49 U/L (45-117)
[2024-03-10 10:51] LABS: ALBUMIN 2.2 g/dl (3.4-5.0); ANION GAP 8 mmol/L (4-13); CALCIUM 6.9 mg/dL (8.5-10.1); POTASSIUM 2.9 mmol/L (3.5-5.1); TOT PROT 5.2 g/dl (6.4-8.2)
[2024-03-10] MEDS: POTASSIUM CHLORIDE TABS 20 MEQ TABLET.ER (FP) PO ONE (11:35)
[2024-03-10] MEDS: SODIUM CHLORIDE 0.9%/KCL 20 MEQ/1,000 ML INFUS.BAG IV SCH (11:36)
[2024-03-10] MEDS: MAGNESIUM OXIDE 400 MG TABLET (FP) PO ONE (15:45)
[2024-03-10 19:00] LABS: POTASSIUM 3.5 mmol/L (3.5-5.1)
[2024-03-10 19:01] LABS: CALCIUM 7.6 mg/dL (8.5-10.1)
[2024-03-10 19:02] LABS: BLOOD UREA NITROGEN 4.6 mg/dL (7-18)
[2024-03-10 19:05] LABS: CREATININE 0.7 mg/dL (0.55-1.3)
[2024-03-10] MEDS: KETOROLAC TROMETHAMINE 30 MG/1 ML VIAL IVPUSH ONE (23:20)
[2024-03-11] MEDS ORDERED: POLYETHYLENE GLYCOL (HEALTHYLAX) 3350 17 GM PACKET PO PRN (02:07)
[2024-03-11] MEDS: oxyCODONE HCL 5 MG TABLET PO ONE (02:44)
[2024-03-11 08:24] LABS: BASO % 0.2 % (0-2.0); EOS % 3.2 % (0-4.5); HEMATOCRIT 30.4 % (32.4-45.2); HEMOGLOBIN 10.8 GM/dL (10.7-15.3); LYMPH % 17.1 % (8-40); MCHC 35.4 g/dl (32.0-36.0); MEAN CELL VOLUME 96.2 fl (80-96); MEAN PLT VOLUME 9.1 fl (7.5-11.1); MONO % 12.2 % (3.8-10.2); NEUT % 67.3 % (42.8-82.8); PLATELET COUNT 172 10^3/uL (134-434); RBC 3.16 M/mm3 (3.60-5.2); RDW 13.6 % (11.6-15.6); WHITE BLOOD COUNT 7.5 K/mm3 (4.0-10.0)
[2024-03-11 08:28] LABS: POTASSIUM 3.7 mmol/L (3.5-5.1)
[2024-03-11 08:33] LABS: BLOOD UREA NITROGEN 5.2 mg/dL (7-18); CALCIUM 7.8 mg/dL (8.5-10.1); CREATININE 0.7 mg/dL (0.55-1.3); MAGNESIUM 1.8 mg/dL (1.8-2.4)
[2024-03-11 08:38] LABS: PHOSPHOROUS 2.7 mg/dL (2.5-4.9)
[2024-03-11 12:35] VITALS: BP 132/70; PULSE 62; TEMP 98.4
== END 2024-03-11 12:45 | disposition home or self-care (01) | DRG 392 ==
LOC: JER 21:23 → JERBED 03-09 04:48 → J8W 03-09 10:46 → OBSVTOIN 03-09 12:43
PROVIDERS: ADMIT Internal Medicine; ATTEND Internal Medicine
DX: K57.32 Diverticulitis of large intestine without perforation or abscess without bleeding (principal); F12.90 Cannabis use, unspecified, uncomplicated; R11.2 Nausea with vomiting, unspecified; M17.0 Bilateral primary osteoarthritis of knee; R56.9 Unspecified convulsions; F17.210 Nicotine dependence, cigarettes, uncomplicated; D72.829 Elevated white blood cell count, unspecified
CPT/HCPCS: 0241U-QW; 36415; 74177-TC; 76705-TC; 80048; 80053; 80307; 81003; 83690; 83735; 84100; 84484; 84703; 85025; 86140; 87086; 87186; 93005; 93010; 99285-25; G0378; J0131

== ENCOUNTER 2024-07-26 20:07 | Emergency (ER) | payer OTHER ==
[2024-07-26 20:46] VITALS: BP 134/88; PULSE 62; RESP 20; TEMP 97.6; BMI 44.8
[2024-07-26] MEDS ORDERED: METOCLOPRAMIDE HCL INJECTION 10 MG/2 ML VIAL ONE (20:46)
[2024-07-26] MEDS ORDERED: ACETAMINOPHEN INJECTION 100 ML ONE (20:46)
[2024-07-26] MEDS: METOCLOPRAMIDE HCL INJECTION 10 MG/2 ML VIAL IVPB ONE (21:18)
[2024-07-26] MEDS: ACETAMINOPHEN 1000 MG/100 ML BAG IVPB ONE (21:18)
[2024-07-26] MEDS ORDERED: LIDOCAINE 4% PATCH TP ONE (21:22)
[2024-07-26] MEDS ORDERED: METHOCARBAMOL 500 MG TABLET ONE (21:22)
[2024-07-26] MEDS: LIDOCAINE 5% TOPICAL PATCH TP ONE (21:30)
[2024-07-26 21:31] LABS: BASO % 0.5 % (0-2.0); EOS % 2.2 % (0-4.5); HEMATOCRIT 38.7 % (32.4-45.2); HEMOGLOBIN 12.9 GM/dL (10.7-15.3); LYMPH % 39.4 % (8-40); MCH 32.8 pg (25.7-33.7); MCHC 33.3 g/dl (32.0-36.0); MEAN CELL VOLUME 98.5 fl (80-96); MEAN PLT VOLUME 8.2 fl (7.5-11.1); MONO % 6.4 % (3.8-10.2); NEUT % 51.5 % (42.8-82.8); PLATELET COUNT 258 10^3/uL (134-434); RBC 3.93 M/mm3 (3.60-5.2); RDW 14.3 % (11.6-15.6); WHITE BLOOD COUNT 7.6 K/mm3 (4.0-10.0)
[2024-07-26] MEDS: METHOCARBAMOL 500 MG TABLET PO ONE (21:31)
[2024-07-26 22:00] LABS: POTASSIUM 4.6 mmol/L (3.5-5.1)
[2024-07-26] MEDS ORDERED: LIDOCAINE PATCH REMOVAL MC SCH (22:00)
[2024-07-26 22:02] LABS: CALCIUM 9.5 mg/dL (8.5-10.1)
[2024-07-26 22:03] LABS: ALBUMIN 3.7 g/dl (3.4-5.0); BLOOD UREA NITROGEN 8.7 mg/dL (7-18)
[2024-07-26 22:06] LABS: CREATININE 0.8 mg/dL (0.55-1.3)
[2024-07-26 22:07] LABS: BILIRUBIN,TOTAL 0.4 mg/dL (0.2-1); TOT PROT 7.8 g/dl (6.4-8.2)
== END 2024-07-26 21:49 | disposition left against medical advice (07) ==
LOC: JER 20:07
PROC: 3E033NZ Introduction of Analgesics, Hypnotics, Sedatives into Peripheral Vein, Percutaneous Approach (ICD-10-PCS; principal; 2024-07-26)
PROC: 3E033GC Introduction of Other Therapeutic Substance into Peripheral Vein, Percutaneous Approach (ICD-10-PCS; 2024-07-26)
DX: R51.9 Headache, unspecified (principal); M62.830 Muscle spasm of back; F43.0 Acute stress reaction
CPT/HCPCS: 36415; 80053; 83735; 84484; 84703; 85025; 93005; 93010; 99284-25; J0131

== ENCOUNTER 2025-02-13 13:23 | Emergency (ER) | payer OTHER ==
[2025-02-13 13:48] VITALS: BP 125/82; PULSE 74; RESP 19; TEMP 97.7; BMI 41.3
== END 2025-02-13 14:21 | disposition home or self-care (01) ==
LOC: JERFT 13:23
DX: L73.9 Follicular disorder, unspecified (principal)
CPT/HCPCS: 99283-25